=== PATIENT | male | born 1950 | race Hispanic/Latino ===

== ENCOUNTER → 2018-03-25 | Day surgery (SDC) | payer MEDICARE, OTHER ==
[2018-03-17 11:39] LABS: BASOPHILS % 0.4 % (0.0-1.0); EOSINOPHILS # (AUTO) 0.3 (0.0-0.4); EOSINOPHILS % 2.9 % (0.0-6.0); HEMATOCRIT 43.4 % (38.2-49.6); HEMOGLOBIN 14.7 g/dL (14.0-18.0); LYMPHOCYTES # (AUTO) 2.3 (1.0-3.2); LYMPHOCYTES % 25.5 % (18.0-39.1); MEAN CORPUSCULAR HEMOGLOBIN 28.7 pg (28-32); MEAN CORPUSCULAR HGB CONC 33.9 g/dL (31-35); MEAN CORPUSCULAR VOLUME 84.8 fL (81-99); MONOCYTES # (AUTO) 0.8 (0.2-0.8); MONOCYTES % 8.4 % (4.4-11.3); NEUTROPHILS # (AUTO) 5.6 (2.1-6.9); NEUTROPHILS % 62.5 % (38.7-80.0); PLATELET COUNT 375 x10e3/uL (140-360); RED BLOOD COUNT 5.12 x10e6/uL (4.3-5.7); RED CELL DISTRIBUTION WIDTH 13.2 % (11.7-14.4)
--- NOTE | 2018-03-17 11:52 | Diagnostic Imaging Report ---
PROCEDURE: X-RAY CHEST, TWO VIEWS COMPARISON: None. INDICATIONS: PREOPERTIVE CHEST XRAY FOR ERECTILE DYSFUNCTION SURGERY FINDINGS: LUNGS: No consolidations or edema. PLEURA: No effusions or pneumothorax. HEART \T\ MEDIASTINUM: The heart is within normal size-limits. BONES \T\ SOFT TISSUES: No acute findings. CONCLUSION: No acute thoracic abnormality. Dictated by: Milton Saleem M.D. on 03/17/2018 at 11:55 Electronically approved by: Milton Saelem M.D. on 03/17/2018 at 11:55
[2018-03-17 12:13] LABS: ANION GAP 13.2 mmol/L (8-16); BLOOD UREA NITROGEN 10 mg/dL (7-26); BUN/CREATININE RATIO 10 (6-25); CALCIUM 9.6 mg/dL (8.4-10.2); CARBON DIOXIDE 24 mmol/L (22-29); CHLORIDE 106 mmol/L (98-107); CREATININE, SERUM 0.97 mg/dL (0.72-1.25); EST GLOMERULAR FILTRATION RATE > 60 ML/MIN (60-); GLUCOSE 118 mg/dL (74-118); POTASSIUM 4.2 mmol/L (3.5-5.1); SODIUM 139 mmol/L (136-145)
[~2018-03-25] MED LIST: ACETAMINOPHEN 1000 MG/100 ML IV ONE; ASPIR 8181 MG PO; ATORVASTATIN CA20 MG PO; BACITRACIN 50,000 UNIT VIAL ONE; CEFTRIAXONE SOD 1 GM VIAL ONE; DEXAMETHASONE SOD PHOS INJ 4 MG/ML VIAL ONE; FENOFIBRATE145 MG PO; FENTANYL CITRATE/PF 100MCG/2 ML INJ ONE; FLUOXETINE HCL20 MG PO; JANUVIA100 MG PO; JARDIANCE PO; LEVOTHYROXINE50 MCG PO; LIDOCAINE HCL 1% LOCAL INJ 20 ML VIAL ONE; LOSARTAN POTASS25 MG PO; METFORMIN HCL500 M2 PO; METFORMIN HCL500 MG PO; MIDAZOLAM HCL 2 MG/2 ML VIAL ONE; NOVOLIN 70100 UNITS/ SQ; ONDANSETRON HCL INJ 2 MG/ML VIAL ONE; PRIMIDONE50 MG PO; PROPOFOL IV EMULSION 10 MG/ML 20 ML VIAL ONE; PROPRANOLOL HCL10 MG PO; SEVOFLURANE INHAL SOLN 250 ML PEN BTL ONE; VICTOZA 3-0.6 MG/0.1 SC
--- OUTSIDE RECORDS SUMMARY | 2018-03-25 05:31 | XMS REPORT ---
[facility] Address Unknown Phone Unavailable Care Team Providers Care Cold Working Supervisor Name Role Phone PHILIPP DE LA O Unavailable Unavailable Problems This patient has no known problems. Allergies, Adverse Reactions, Alerts This patient has no known allergies or adverse reactions. Medications This patient has no known medications. Results Test Description Test Time Test Comments Text Results Atomic Results Result Comments CHEST 2 VIEWS [place] [address] Patient Name: ANDRE LOOMIS MR #: [id number] : 1950 Age/Sex: 68/M Req #: [id number] Adm Physician: Ordered by: MIHIR BRUNSON MD Report #: [id number] Location: OR Room/Bed: Procedure: [id number] DX/CHEST 2 VIEWS Exam Date: 03/17/18 Exam Time : 1119 REPORT STATUS: Signed PROCEDURE: X-RAY CHEST, TWO VIEWS COMPARISON: None. INDICATIONS: PREOPERTIVE CHEST XRAY FOR ERECTILE DYSFUNCTION SURGERY FINDINGS: LUNGS: No consolidations or edema. PLEURA: No effusions or pneumothorax. HEART T MEDIASTINUM: The heart is within normal size-limits. BONES T SOFT TISSUES: No acute findings. CONCLUSION: No acute thoracic abnormality. Dictated by: Miguel Angel Jaramillo M.D. on 03/17/2018 at 11:55 Electronically approved by: Miguel Angel Jaramillo M.D. on 03/17/2018 at 11:55 Dictated By: MIGUEL ANGEL JARAMILLO MD [id number] Transcribed By: SADIA on 03/17/18 1153 COPY TO: MIHIR BRUNSON MD
--- NOTE | 2018-03-25 13:41 | Operative Report ---
DATE OF PROCEDURE: March 25, 2018 PREOPERATIVE DIAGNOSIS: Organic erectile dysfunction. POSTOPERATIVE DIAGNOSIS: Organic erectile dysfunction. OPERATIVE PROCEDURE PERFORMED: Placement of inflatable penile prosthesis. ANESTHESIA: General anesthesia. ESTIMATED BLOOD LOSS: Minimal. INDICATIONS: Mr. Simpson is a 68-year-old gentleman with a long history of organic erectile dysfunction, which has failed all other therapies. He now presents for placement of a penile prosthesis. PROCEDURE IN DETAIL: The patient was brought to the operating room and placed in the supine position. After administration of general anesthesia, he was prepped and draped in the usual sterile fashion. A Stokes catheter was placed and the bladder drained. A penoscrotal incision was made sharply, and dissection was carried out through the layers of the penis. The right and subsequently left corporal bodies were identified, taking great care to prevent injury to the urethra. Corporotomies were performed on both sides. There was a small amount of bleeding noted, but not what would be expected to be normal. The corporal bodies were then dilated proximally and distally, first with Metzenbaum scissors and subsequently with the dilators. The corporal bodies were approximately 10 mm in diameter on both sides and measured 20 cm in total length on both sides. After copious irrigation with antibiotic solution, a 16-cm CXR pump was used with 9.5 mm diameter and two 4-cm RTEs on both sides. These were placed without difficulty. The corporal incisions were then reapproximated and closed using interrupted PDS stitches. A subdartos pouch was created in the anterior and inferior scrotum, and this is where the pump was placed. This was from the surrounding tubing by interrupted Vicryl sutures. A separate incision was made in the right groin sharply approximately 5 cm in length. Dissection was carried out through the layers of the abdomen. A 3-cm incision was made in the anterior rectus fascia, and a subrectus pouch was created. The reservoir was placed in this location and ultimately filled with 85 mL of fluid. The quick-connect method was then used to connect the pump to the reservoir. Once everything was connected and hemostasis obtained, both wounds were closed in multiple layers, the skin being closed with a subcuticular stitch using Monocryl. The wounds were then cleaned and dried and covered with Mastisol, Steri-Strips and Tegaderm dressing. Anesthesia was reversed, and the patient was transferred to a bed and taken to the postanesthesia care unit in good condition. Of note, the needle and instrument count were correct at the conclusion of the case. Job#: [id number]
== END | disposition home or self-care (01) ==
LOC: OR 05:29
PROVIDERS: ATTEND Urology
DX: N52.8 Other male erectile dysfunction (principal); E29.1 Testicular hypofunction; G47.33 Obstructive sleep apnea (adult) (pediatric); I44.0 Atrioventricular block, first degree; I10 Essential (primary) hypertension; E11.9 Type 2 diabetes mellitus without complications; E03.9 Hypothyroidism, unspecified; Z01.810 Encounter for preprocedural cardiovascular examination; Z01.812 Encounter for preprocedural laboratory examination; Z01.818 Encounter for other preprocedural examination; Z79.4 Long term (current) use of insulin; Z79.82 Long term (current) use of aspirin; Z68.32 Body mass index [BMI] 32.0-32.9, adult
CPT/HCPCS: 36415 ×2; 54405; 71046; 80048; 82948; 85025; 93005; C1813; J0696; J1100; J2001; J2250; J2405